=== PATIENT | female | born 1975 | race Caucasian/White ===

== ENCOUNTER 2019-02-23 13:39 | Emergency (ER) | payer OTHER ==
[~2019-02-23] VITALS: Ht 162.6 cm; Wt 63.0 kg
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
[2019-02-23] MEDS ORDERED: MORPHINE SULFATE 4 MG/ML, 1ML ONE ×2 (14:11→15:35)
[2019-02-23] MEDS: MORPHINE SULFATE 4 MG/ML, 1ML IVPush PRN ×2 (14:15→15:41)
--- NOTE | 2019-02-23 14:30 | NUR ---
MEDICATED FOR PAIN AND NAUSE. WATING FOR XR RESULTS. NO NEEDS AT THIS TIME
[2019-02-23] MEDS ORDERED: ONDANSETRON 2MG/ML, 2ML ONE (15:35)
[2019-02-23] MEDS ORDERED: ONDANSETRON 2MG/ML, 2ML IVPush ONE (16:00)
[2019-02-23 16:37] VITALS: BP 135/86
== END 2019-02-23 16:38 | disposition home or self-care (01) ==
LOC: ED 14:11
DX: S46.912A Strain of unspecified muscle, fascia and tendon at shoulder and upper arm level, left arm, initial encounter (principal); S70.01XA Contusion of right hip, initial encounter; S60.222A Contusion of left hand, initial encounter; V17.4XXA Pedal cycle driver injured in collision with fixed or stationary object in traffic accident, initial encounter; Y93.89 Activity, other specified; Y92.89 Other specified places as the place of occurrence of the external cause; Y99.8 Other external cause status
CPT/HCPCS: 71045; 72190; 73000; 73030; 73130; 73501; 96374; 96375; 96376; 99283; J2270; J2405

== ENCOUNTER → 2019-04-16 | Outpatient (CLI) | payer OTHER | END | disposition home or self-care (01) | LOC: CFH 09:34 | PROVIDERS: ATTEND Orthopaedic Surgery | DX: S42.022K Displaced fracture of shaft of left clavicle, subsequent encounter for fracture with nonunion (principal); X58.XXXD Exposure to other specified factors, subsequent encounter ==